=== PATIENT | female | born 1975 | race Caucasian/White ===

== ENCOUNTER 2016-06-09 15:49 | Emergency (ER) | payer MEDICAID, SELFPAY | END 2016-06-09 16:53 | disposition home or self-care (01) | LOC: ER 15:49 | DX: K08.89 Other specified disorders of teeth and supporting structures (principal) ==

== ENCOUNTER 2016-06-25 13:09 | Emergency (ER) | payer SELFPAY | END 2016-06-25 14:53 | disposition home or self-care (01) | LOC: ER 13:09 | DX: K08.89 Other specified disorders of teeth and supporting structures (principal); F17.200 Nicotine dependence, unspecified, uncomplicated ==